=== PATIENT | male | born 1970 | race Caucasian/White ===

== ENCOUNTER 2019-08-27 23:19 | Emergency (ER) | payer SELFPAY ==
[~2019-08-27] VITALS: Ht 180.3 cm; Wt 110.0 kg
[2019-08-28] MEDS: ASPIRIN 81MG TABLET PO ONE (00:10)
[2019-08-28 00:31] LABS: BASOPHILS % 0.3 % (0.0-2.0); EOSINOPHILS % 0.6 % (0.0-5.0); HEMATOCRIT. 45.5 % (42.0-52.0); LYMPHOCYTES % 14.2 % (20.0-50.0); MEAN CORPUSCULAR HEMOGLOBIN 32.6 pg (28.0-32.0); MEAN CORPUSCULAR VOLUME 92.7 fL (80.0-94.0); MONOCYTES % 7.5 % (2.0-8.0); NEUTROPHILS % 77.4 % (40.0-76.0); PLATELET 250 x1000/uL (130-400); RED CELL DISTRIBUTION WIDTH 13.3 % (11.6-14.6)
[2019-08-28 00:44] LABS: CHLORIDE 105 mEq/L (98-107)
[2019-08-28 04:10] VITALS: BP 148/89
== END 2019-08-28 04:30 | disposition home or self-care (01) ==
LOC: ER 23:19
DX: R07.89 Other chest pain (principal); E11.9 Type 2 diabetes mellitus without complications; I10 Essential (primary) hypertension; Z90.49 Acquired absence of other specified parts of digestive tract; Z98.890 Other specified postprocedural states
CPT/HCPCS: 36415; 71045; 80053; 82962; 84484; 85025; 93005; 99285; Z7610